=== PATIENT | female | born 1940 | race Caucasian/White ===

== ENCOUNTER 2020-11-18 08:54 | Outpatient (REF) | payer MEDICARE, MEDICAID, SELFPAY | END 2020-11-18 08:55 | disposition home or self-care (01) | LOC: HO.BBR 08:54 | PROVIDERS: PCP Internal Medicine; Visit Provider Internal Medicine Hematology & Oncology | DX: Z13.89 Encounter for screening for other disorder (principal) ==

== ENCOUNTER 2021-02-10 08:46 | Outpatient (REF) | payer MEDICARE, MEDICAID, SELFPAY | END 2021-02-10 08:47 | disposition home or self-care (01) | LOC: HO.BBR 08:46 | PROVIDERS: Visit Provider Internal Medicine Hematology & Oncology | DX: Z13.89 Encounter for screening for other disorder (principal) ==